=== PATIENT | male | born 1950 | race Caucasian/White ===

== ENCOUNTER 2019-07-06 08:43 | Outpatient (CLI) | payer MEDICARE, BC ==
--- NOTE | 2019-07-06 09:57 | CT ---
CT CHEST WITHOUT CONTRAST: Axial tomograms were obtained following a low-dose screening protocol. INDICATION: History of nicotine dependence. History of smoking x 45 years. COMPARISON: Comparison is made to a low-dose screening noncontrast chest CT from [facility] dated 05/20/2016 . FINDINGS: Emphysematous changes are again noted with bullous changes in both upper lungs, similar to the prior exam. The 7 mm nodule in the left upper lobe posteriorly is again seen and is stable. Mild surround ing parenchymal density and pleural thickening at this site also remains stable. There is a tiny 3 m m nodule in the anterior aspect of the right upper lobe which may be calcified. This is a stable nod ule. Mediastinum unremarkable. Images through the upper abdomen unremarkable. Osseous structures unremar kable. IMPRESSION: Chronic lung changes are again noted with emphysematous change. The chronic lung changes and these s mall nodules described above remain stable. Lung RADS 2, recommend annual low-dose screening chest CT. POS: [facility]
== END 2019-07-06 08:44 | disposition home or self-care (01) ==
LOC: CT 08:43
PROVIDERS: ATTEND Family Medicine
DX: Z12.2 Encounter for screening for malignant neoplasm of respiratory organs (principal); R91.8 Other nonspecific abnormal finding of lung field; Z87.891 Personal history of nicotine dependence
CPT/HCPCS: G0297

== ENCOUNTER 2020-10-23 08:29 | Outpatient (CLI) | payer MEDICARE, BC | END 2020-10-23 08:30 | disposition home or self-care (01) | LOC: BICCT 08:29 | PROVIDERS: ATTEND Family Medicine | DX: Z12.2 Encounter for screening for malignant neoplasm of respiratory organs (principal); Z87.891 Personal history of nicotine dependence | CPT/HCPCS: 71271 ==